=== PATIENT | male | born 1975 | race Caucasian/White ===

== ENCOUNTER 2023-10-03 17:04 | Observation (INO) ==
--- OUTSIDE RECORDS SUMMARY | 2023-10-03 17:08 | External Medical Summary | Summary of Care ---
Author Name Unknown Organization [facility] Address [address] [facility] [address] Phone [phone] Care Team Providers Care Lead Application Architect Name Role Phone Ariana Girard MD Primary Care Provid er Reason for Visit * Reason Onset Date Comments Advice 08/30/2023 Encounter Details Date Type Department Care Team (Late st Contact Info) Description 08/30/2023 Telephone [facility] [address] [place] [address] Ariana Girard MD [address] [place] [address] Advice Allergies Active Allergy Reactions Criticality Noted Date Comments Bee Stings 02/06/2009 Pollen 03/17/2022 Omeprazole Abdominal pain 09/22/2015 documented as of this encounter (statuses as of 09/03/2023) Medications Medication Sig Dispensed Refills Start Date End Date Status BENADRYL ALLERGY 25 MG PO TABSIndications:Tox ic effect of venom(989.5) 2 TABLETS AT ONSET OF BEE STING ITCHING, HIVES AND EVERY 4 TO 6 HOURS NEEDED 30 Tab 5 02/23/2010 Active fluticasone (FLONASE) 50 MCG/ACT nasal spray Administer 2 Sprays into nostril daily. 1 Bottle 3 02/02/2018 Active EpiPen 2-Andrew 0.3 MG/0.3ML Injection Solution Auto-injectorIndica tions:Allergy to bee sting For a severe reaction: Place orange end against the outer thigh, press firmly, hold in place for 10 seconds and go to the Emergency room. 1 Each 2 03/16/2021 Active Cetirizine HCl 10 MG Oral Tablet (ZyrTEC) Take 1 Tablet by mouth in the morning. 0 Active Atorvastatin Calcium 20 MG Oral Tablet (Lipitor)Indication s:Dyslipidemia, goal to be determined Take 1 Tablet by mouth every night at bedtime. 90 Tablet 3 04/08/2023 Active Rosuvastatin Calcium 5 MG Oral Tablet (Crestor)Indication s:Dyslipidemia, goal to be determined Take 1 Tablet by mouth every night at bedtime. 90 Tablet 3 06/10/2023 Active documented as of this encounter (statuses as of 09/03/2023) Active Problems Problem Noted Date Diagnosed Date Dyslipidemia, goal to be determined 06/10/2023 GEORGE (obstructive sleep apnea) 03/25/2023 Trigger middle finger of right hand 02/19/2022 Major depressive disorder, recurrent episode, mo derate 03/21/2021 ALBARO (generalized anxiety disorder) 03/21/2021 Mild intermittent asthma without complication Achilles tendinitis 03/12/2021 Plantar fasciitis, right 03/12/2021 Difficult intubation 02/26/2016 Overview: Fair mask airway, SALES SUPPORT SPECIALIST was unable to visualize vocal cords with DL, patient was able to be intubate by GlideScope with #3 Probe cover. Smaller mouth opening, making maneuvering of the ETT with GlideScope intubation mildly difficult. Migraine without aura and wi thout status migrainosus, not intractable 01/18/2003 documented as of this encounter (statuses as of 09/03/2023) Resolved Problems Problem Noted Date Diagnosed Date Resolved Date Seasonal allergic rhinitis due to pollen 03/16/2021 05/01/2021 Allergy to bee sting 03/16/2021 021 Achilles tendonitis, bilateral 03/16/2021 05/01/2021 Umbilical hernia without obs truction and without gangrene 11/05/2015 02/02/2018 Unilateral inguinal hernia w ithout obstruction or gangrene 10/05/2015 02/02/2018 Acute bronchitis, complicated 06/08/2012 04/27/2013 Conjunctivitis 10/08/2011 06/11/2014 Acute tonsillitis 08/10/2011 04/27/2013 Sprain of ankle 07/04/2010 04/27/2013 Overweight (BMI 25.0-29.9) 01/05/2010 0 02/02/2018 Overview: Per Obesity Taxonomy Gastroesophageal reflux dise ase without esophagitis 04/23/2009 02/02/2018 Overview: mild stomach irritation and esophageal inflammation ADVANCE DIRECTIVE INFORMATION 02/15/2007 05/01/2021 Overview: Yes, Patient instructed to provide copy of advance directive for provider to review and to be scanned into Electronic Medical Record Toxic effect of venom 10/19/20052020 Overview: ICD-10 update of inactive term CHR ALLRG CONJUNCTIV NEC 10/19/2005 Other allergic rhinitis 01/18/200304/10 Overview: ICD-10 update of inactive term Major depression, single episode 02/01/2017 OBESITY, UNSPECIFIED 010 Overview: Per Obesity Taxonomy Tobacco use disorder 010 Overview: Quit 2001 documented as of this encounter (statuses as of 09/03/2023) Immunizations Name Administration Dates Next Due COVID-19 mRNA, LNP-s, No Pre serve, 2-Dose Series (Moderna) 11/11/2020,10/17/2020 COVID-19, LNP-s, No Preserve , Antwon-sucrose, Ages 12+ (Pfizer) 07/10/2022 COVID-19, mRNA, LNP-s, PF, B ooster, 100mcg/0.5mg (Moderna) 08/26/2021 DTP Vaccine 02/21/2015 PPD 12/20/2018 SEASONAL INFLUENZA, PF, 6 M & Above, IM , (FLULAVAL or FLUZONE) 07/10/2022,06/21/2020,08/18/2017 Seasonal Influenza Virus Vac cine, Unspecified Formulation 07/15/2021,06/21/2020,07/10/2019,2016,06/24/2016,06/11/2014,07/06/2013 Seasonal Influenza, Quadriva lent, No Preserve, IM 06/24/2016,07/25/2015 Seasonal Influenza, Split, I IV3, With Preserve, Inj 06/11/2014,07/06/2013 TDAP (age 11 and older)(Adacel) 02/22/2015,10/08 documented as of this encounter Social History Tobacco Use Types Packs/Day Years Used Date Smoking Tobacco: Former Cigarettes Q uit: 07/15/2005 Smokeless Tobacco: Former Quit: 03/30/2009 Comments:1/2 can per day/kierra t ciagarettes 2000 Alcohol Use Standard Drinks/Week Comments Yes 4 (1 standard drink = 0.6 oz pur e alcohol) 4 beers per week PHQ-2 Answer Date Recorded PHQ-2 Score 0 02/05/2019 Hunger Vital Sign Answer Date Recorded Within the past 12 months, y ou worried that your food would run out before you got the money to buy more. Never true 03/14/20 23 Within the past 12 months, t he food you bought just didn't last and you didn't have money to get more. Never true 03/14/2023 Sex and Gender Information Value Date Recorded Sex Assigned at Male 02/05/2019 7:40 AM EDT Gender Identity Male 02/05/2019 7:40 AM EDT Sexual Orientation Straight 02/05/2019 7: 40 AM EDT Job Start Date Occupation Industry Not on file Not on file Not on file documented as of this encounter Miscellaneous Notes * Telephone Encounter - Ariana Girard MD - 09/03/2023 12:31 PM EST Seen by Telemed * Telephone Encounter - Tracey Sharp OSA - 08/30/2023 3:23 PM EST Patient's calling back to check on this. Wants paxlovid or advice for something else. Wants topick up today. Send to [facility] pharmacy. * Telephone Encounter - Indiana López LPN - 08/30/2023 1:10 PM EST is calling. They both tested positive for covid. Asking if he qualifies for paxlovid.? Cough is so bad feels like your eyeballs are popping out her doctor gave her something for the cough at least. If not paxlovid, is there something else? Patient calling with positive Covid result and requesting Paxlovid. What symptoms are you experiencing such as fever, sore throat, shortness of breath, cough, wheezing, nasal drainage, congestion? Cough, fever, head congestion, No shortness of breath. Did you have 2 vaccines yes Boosters 2 Date of first symptoms: Tuesday night Date of last fever: Today Have you had close exposure to someone who tested positive for COVID-19? Date of first exposure: Unknown Confirm pharmacy. * Telephone Encounter - Angelina Cabrera OSA - 08/30/2023 1:07 PM EST Reason for patient's call: questions for nurse about covid medication Caller was transferred to [facility] at the nurse line. documented in this encounter Plan of Treatment Upcoming Encounters Date Type Department Care Team (Late st Contact Info) Description 02/24/2024 10:00 AM EDT Office Visit Allergy/Immunology [facility] [place] [address] [place] [address] Ho Hein MD [address] [place] [address] 03/26/2024 9:00 AM EDT Office Visit [address] [place] [address] Ariana Girard MD [address] [place] [address] Health Maintenance Due Date Last Done Comments Hepatitis B (1 of 3 - 3-dose series) 1977 Pneumococcal Vaccine: Pediatrics (0 to 5 Years) and At-Risk Patients (6 to 64 Years) (1 - PCV) 1983 Depression Screening 02/06/2020 02/05/2019 Colonoscopy 2022 Fecal Occult Blood Test 2022 Sigmoidoscopy 2022 *SPIROMETRY ONCE FOR ASTHMA-ADULT 09/02/2022 COVID-19 Vaccine ( - 2022- season) 2023 07/10/2022, 08/26/2021, 11/11/2020, Additional history exists DTaP,Tdap,and Td Vaccines (5 - Td or Tdap) 02/22/2025 02/22/2015, 02/21/2015, 10/08/2011, Additional history exists Cologuard 03/31/2025 03/31/2022, 03/10, 03/25/2022 Colorectal Cancer Screening 03/31/2025 Diabetes Screening 08/04/2025 08/04/2022, 0 10/29/2015, 04/27/2013, Additional history exists Lipid Panel 03/25/2028 03/25/2023, 07/11, 12/04/2016, Additional history exists Influenza Vaccine (FLU shot) Completed , 07/10/2022, 07/15/2021, Additional history exists GARDASIL-HPV IMMUNIZATION SERIES Aged Out No longer eligible based on patient's age to complete this topic MENINGOCOCCAL (MENACTRA/MENVEO) Aged Out No longer eligible based on patient's age to complete this topic documented as of this encounter Medical Devices Implanted Type Area Forensic Ballistics Expert Device Identifier Shelf Expiration Date Model / Serial / Lot Mesh 3dmax 3.1x5.3in Lft Med - [id number] Implanted:Qty: 1 on 02/26/2016 by Bryan Aguilar, DO at OR [facility] Left: Groin CR BARD : ALAN 10/06/2020 [id number] / / [id number] documented as of this encounter Care Teams Lead Application Architect Relationship Specialty Start Date End Date Ariana Girard MD [address] [place] [id number] PCP - General Family Medicine 01/27/22 documented as of this encounter
--- OUTSIDE RECORDS SUMMARY | 2023-10-03 17:08 | External Medical Summary | Summary of Care ---
Author Name Unknown Organization [facility] Address [address] [facility] [place] [address] Phone [phone] Care Team Providers Care Fish And Wildlife Biologist Name Role Phone Ariana Girard MD Primary Care Provid er Reason for Visit * Reason Onset Date Comments Films 04/25/2023 Encounter Details Date Type Department Care Team Description 04/25/2023 Telephone Radiology Film [facility] [address] [facility] [place] [address] Rosa Ugarte DPM [address] [facility] [place] [id number] Films Allergies Active Allergy Reactions Severity Noted Date Comments Bee Stings 02/06/2009 Pollen 03/17/2022 Omeprazole Abdominal pain 09/22/2015 documented as of this encounter (statuses as of 04/25/2023) Medications Medication Sig Dispensed Refills Start Date [...] at bedtime. 90 Tablet 3 04/08/2023 Active documented as of this encounter (statuses as of 04/25/2023) Active Problems Problem Noted Date GEORGE (obstructive sleep apnea) 03/25/2023 Trigger middle finger of right hand 02/07 Major depressive disorder, recurrent epi sode, moderate 03/21/2021 ALBARO (generalized anxiety disorder) 03/21 Mild intermittent asthma without complic ation 03/16/2021 Achilles tendinitis 03/12/2021 Plantar fasciitis, right 03/12/2021 Difficult intubation 02/26/2016 Overview: Fair mask airway, GENERAL OFFICE CLERK was unable to visualize vocal cords with DL, patient was able to be intubate by GlideScope with #3 Probe cover. Smaller mouth opening, making maneuvering of the ETT with GlideScope intubation mildly difficult. Migraine without aura and without status migrainosus, not intractable 01/18/2003 documented as of this encounter (statuses as of 04/25/2023) Resolved Problems Problem Noted Date Resolved Date Seasonal allergic rhinitis due to pollen 021 05/01/2021 Allergy to bee sting 03/16/2021 05/01/2021 Achilles tendonitis, bilateral 03/16/2021 0 05/01/2021 Umbilical hernia without obstruction and without gangrene 11/05/2015 02/02/2018 Unilateral inguinal hernia without obstruction o r gangrene 10/05/2015 02/02/2018 Acute bronchitis, complicated 06/08/2012 Conjunctivitis 10/08/2011 06/11/2014 Acute tonsillitis 08/10/2011 04/27/2013 Sprain of ankle 07/04/2010 04/27/2013 Overweight (BMI 25.0-29.9) 01/05/201002/02 Overview: Per Obesity Taxonomy Gastroesophageal reflux disease without esophagi tis 04/23/2009 02/02/2018 Overview: mild stomach irritation and esophageal inflammation ADVANCE DIRECTIVE INFORMATION 02/15/2007 Overview: Yes, Patient instructed to provide copy of advance directive for provider to review and to be scanned into Electronic Medical Record Toxic effect of venom 10/19/2005 03/16/2021 Overview: ICD-10 update of inactive term CHR ALLRG CONJUNCTIV NEC 10/19/2005 021 Other allergic rhinitis 01/18/2003 05/01/20 21 Overview: ICD-10 update of inactive term Major depression, single episode 02/01/2017 OBESITY, UNSPECIFIED 01/05/2010 Overview: Per Obesity Taxonomy Tobacco use disorder 02/23/2010 Overview: Quit 2001 documented as of this encounter (statuses as of 04/25/2023) Immunizations Name Administration Dates Next Due COVID-19 mRNA, LNP-s, No Pre serve, 2-Dose Series (Moderna) 11/11/2020,10/17/2020 COVID-19, LNP-s, No Preserve , Antwon-sucrose, Ages 12+ (Pfizer) 07/10/2022 Covid-19 Mrna, Lnp-s, No Pre serve, Booster (Moderna) 08/26/2021 DTP Vaccine 02/21/2015 PPD 12/20/2018 Seasonal Influenza Virus Vac cine, Unspecified Formulation 07/15/2021,06/21/2020,07/10/2019,2016,06/24/2016,06/11/2014,07/06/2013 Seasonal Influenza, Quadriva lent, No Preserve, 6 Mons & Above, IM 07/10/2022,06/21/2020,08/18/2017 Seasonal Influenza, Quadriva lent, No Preserve, IM [...] pur e alcohol) 4 beers per week Food Insecurity Answer Date Recorded Within the past 12 months, y ou worried that your food would run out before you got money to buy more. Never true 03/14/2023 Within the past 12 months, t he food you bought just didn't last and you didn't have money to get more. Never true 03/14/2023 Sex Assigned at Date Recorded Male 02/05/2019 7:40 AM E DT Job Start Date Occupation Industry Not on file Not on file Not on file documented as of this encounter Miscellaneous Notes * Telephone Encounter - GEORGE Clancy - 04/25/2023 3:54 PM EDT Received fax requesting 03/31/20 Xray, 07/28/22 Xray & 09/17/22 MRI images be sent on disc. [place] Authorization on file to release. Cd created and sent to: [facility], [address] [place] [address], [id number] Sent First Class Mail. documented in this encounter Plan of Treatment Upcoming Encounters Date Type Specialty Care Team Description 03/26/2024 Office Visit Family Medicine Ariana Girard MD [address] [place] [address] Health Maintenance Due Date Last Done Comments Hepatitis B (1 of 3 - 3-dose series) 1975 Pneumococcal Vaccine: Pediatrics (0 to 5 Years) and At-Risk Patients (6 to 64 Years) (1 - PCV) 1983 Depression Screening, Annual for Pts 12 and Over 02/06/2020 02/05/2019 Colonoscopy 2022 Fecal Occult Blood Test 2022 Sigmoidoscopy 2022 *SPIROMETRY ONCE FOR ASTHMA-ADULT 09/02/2022 COVID-19 Vaccine (5 - Moderna series) 09/04/2022 07/10/2022, 08/26/2021, 11/11/2020, Additional history exists Influenza Vaccine (FLU shot) (#1) 2023 07/10/2022, 07/15/2021, 06/21/2020, Additional history exists DTaP,Tdap,and Td Vaccines (5 - Td or Tdap) 02/22/2025 02/22/2015, 02/21/2015, 10/08/2011, Additional history exists Cologuard 03/31/2025 03/31/2022, 03/10, 03/25/2022 Colorectal Cancer Screening 03/31/2025 Diabetes Screening 08/04/2025 08/04/2022, 0 10/29/2015, 04/27/2013, Additional history exists Lipid Panel 03/25/2028 03/25/2023, 07/11, 12/04/2016, Additional history exists Hepatitis C Screening Completed 08/04/2022 , 08/04/2022, 08/04/2022 GARDASIL-HPV IMMUNIZATION SERIES Aged Out No longer eligible based on patient's age to complete this topic MENINGOCOCCAL (MENACTRA/MENVEO) Aged Out No longer eligible based on patient's age to complete this topic documented as of this encounter Medical Devices Implanted Type Area Manager Environmental Device Identifier Shelf Expiration Date Model / Serial / Lot Mesh 3dmax 3.1x5.3in t Med - [id number] Implanted:Qty: 1 on 02/26/2016 by Bryan Aguilar DO at OR [facility] Left: Groin CR BARD : DAVOL 10/06/2020 [id number] / / [id number] documented as of this encounter Care Teams Fish And Wildlife Biologist Relationship Specialty Start Date End Date Ariana Girard MD [address] [place] [address] PCP - General Family Medicine 01/27/22 documented as of this encounter
--- OUTSIDE RECORDS SUMMARY | 2023-10-03 17:08 | External Medical Summary | Summary of Care ---
Author Name Unknown Organization [facility] Address [address] [facility] [place] [address] Phone [phone] Care Team Providers Care [employer]ator [employer] Name Role Phone Ariana Girard MD Primary Care Provid er Encounter Details Date Type Department Care Team (Late st Contact Info) Description 08/30/2023 5:40 PM EST Telemedicine [facility] [address] [place] [id number] Cari Cantrell, [address] [place] [id number] COVID-19 virus infection* Allergies Active Allergy Reactions Criticality Noted Date Comments Bee Stings 02/06/2009 Pollen 03/17/2022 Omeprazole Abdominal pain 09/22/2015 documented as of this encounter (statuses as of 08/31/2023) Medications Medication Sig Dispensed Refills Start Date [...] as of this encounter (statuses as of 08/31/2023) Active Problems Problem Noted Date Diagnosed Date Dyslipidemia, goal to be determined 06/10/2023 GEORGE (obstructive sleep apnea) 03/25/2023 Trigger middle finger of right hand 02/19/2022 Major depressive disorder, recurrent episode, mo derate 03/21/2021 ALBARO (generalized anxiety disorder) 03/21/2021 Mild intermittent asthma without complication Achilles tendinitis 03/12/2021 Plantar fasciitis, right 03/12/2021 Difficult intubation 02/26/2016 Overview: 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 Smaller mouth opening, making maneuvering of the ETT with GlideScope intubation mildly difficult. Migraine without aura and wi thout status migrainosus, not intractable 01/18/2003 documented as of this encounter (statuses as of 08/31/2023) Resolved Problems Problem Noted Date Diagnosed Date [...] as of this encounter (statuses as of 08/31/2023) Immunizations Name Administration Dates Next Due COVID-19 [...] on file documented as of this encounter Progress Notes * Cari Cantrell DO - 08/30/2023 5:50 PM EST Patient location: HOME. I was in a hospital or clinic location. After connecting through televideo,patient was verified with two unique identifiers. 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 Methods to assure confidentiality were taken. Patient acknowledged consent and understanding of pr ivacy and security of the Telemedicine visit. The patient agreed to participate. [address] [place] [id number] Dept. Location: [phone] CHIEF COMPLAINT: Migue Welch is a 48 year old male No chief complaint on file. HPI: There are no exam notes on file for this visit. Pt new to me Seen as VOD The patient reports that he has covid On a home test He started with symptoms on Tuesday evening Cough and congestion and fatigue Now with chills and fever - 100.4 He hasn't taken tylenol or motrin Non smoker No wheezng + nausea No abd pain No diarrhea No vomiting + body aches Decreased appetite All other ro sneg Wt Readings from Last 3 Encounters: 03/25/23 92.1 kg (203 lb) 03/17/22 97.1 kg (214 lb) 03/16/21 83.6 kg (184 lb 4 oz) Hemoglobin AIC Results: No components found for: "[id number]" Lab Results Component Value Date/Time LDL CHOLESTEROL (CALCULATED) - [facility] 201 (H) 03/25/2023 08:22 AM LDL CHOLESTEROL (CALCULATED) - [facility] 159 (H) 08/04/2017 08:03 AM LDL CHOLESTEROL (CALCULATED) - [facility] 93 12/04/2016 08:32 AM LDL CHOLESTEROL (CALCULATED) - [facility] 100 04/22/2015 01:22 PM AST Results: Lab Results Component Value Date/Time AST - [facility] 41 12/04/2016 08:32 AM AST - [facility] 28 04/22/2015 01:22 PM AST - [facility] 34 05/18/2014 10:25 AM ALT Results: Lab Results Component Value Date/Time ALT - [facility] 36 12/04/2016 08:32 AM ALT - [facility] 39 04/22/2015 01:22 PM ALT - [facility] 42 05/18/2014 10:25 AM Social History Tobacco Use Smoking Status Former Types: Cigarettes Quit date: 07/15/2005 Years since quittin.1 Smokeless Tobacco Former Quit date: 03/30/2009 Tobacco Comments 1/2 can per day/quit matt 2000 BP Readings from Last 3 Encounters: 03/25/23 118/80 03/17/22 132/76 04/26/21 130/80 No results found for: "MICROALB" Visit date not found Immunization History Administered Date(s) Administered COVID-19 mRNA, LNP-s, No Preserve, 2-Dose Series (Moderna) 10/17/2020, 11/11/2020 COVID-19, LNP-s, No Preserve, Antwon-sucrose, Ages 12+ (Pfizer) 07/10/2022 COVID-19, mRNA, LNP-s, PF, Booster, 100mcg/0.5mg (Moderna) 08/26/2021 DT - Diptheria/Tetanus (PEDS) 01/18/2003 DTP Vaccine 02/21/2015 PPD 12/20/2018 SEASONAL INFLUENZA, PF, 6 M & Above, IM , (FLULAVAL or FLUZONE) 08/18/2017, 06/21/2020, 07/10/2022 Seasonal Influenza Virus Vaccine, Unspecified Formulation 07/06/2013, 06/11/2014, 06/24/2016, 08/18/2017, 07/10/2019, 06/21/2020, 07/15/2021 Seasonal Influenza, Quadrivalent, No Preserve, IM 07/25/2015, 06/24/2016 Seasonal Influenza, Split, IIV3, With Preserve, Inj 07/06/2013, 06/11/2014 TDAP (age 11 and older)(Adacel) 10/08/2011, 02/22/2015 Results for orders placed or performed in visit on 03/25/23 LIPID PANEL WITH DIRECT LDL IF TG IS HIGH Result Value Ref Range Triglycerides 82 <=174 mg/dL Cholesterol 261 (H) <200 mg/dL HDL Cholesterol 44 >39 mg/dL Non-HDL Cholesterol 217 (H) <=159 mg/dL LDL Cholesterol 201 (H) <=129 mg/dL PMH: Past Medical History: Diagnosis Date Allergic rhinitis due to other allergen Bee sting allergy Esophageal reflux 04/23/2009 mild stomach irritation and esophageal inflammation ALBARO (generalized anxiety disorder) 03/21/2021 Major depression, single episode Migraine without aura Sleep apnea, obstructive PSH: Past Surgical History: Procedure Laterality Date DENTAL SURGERY PROCEDURE NEC 10/12 tooth extraction EGD, FLEXIBLE, W/BIOPSY 04/23/09 mild stomach irritation and esophageal inflammation INFORMATION Left 06-13-2015 Other LAPAROSCOPY; REPAIR INITIAL INGUINAL HERNIA Left 02/26/2016 LAPAROSCOPIC REPAIR INGUINAL HERNIA INITIAL performed by Norma Colorado MD at OR [facility] NUC MED-HEPATOBILIARY SCAN 04/09/2009 normal REMOVAL OF TONSILS, AGE 12+ Bilateral 02/26/2016 TONSILLECTOMY PRIMARY OR SECONDARY AGE 12 OR OVER performed by Bryan Aguilar DO at OR [facility] UMBIL HERNIA REPAIR (REDUCIBLE) AGE 5+YR N/A 02/26/2016 REPAIR UMBILICAL HERNIA AGE 5 AND OVER performed by Norma Colorado MD at OR [facility] FAMILY HISTORY: Family History Problem Relation Age of Onset Diabetes Mother Allergies Mother seasonal rhinitis Obesity Mother Arthritis Mother Atrial fibrillation Mother Allergies Father Hypertension Father Obesity Father Other (congenital heart disease) Sister passed in 20s heart lung transplant Diabetes Grandmother (Maternal) Mental Disorder Grandmother (Maternal) Depression Cancer Grandmother (Maternal) Breast Diabetes Grandfather (Maternal) Cancer Grandfather (Maternal) Pancreatic Stroke Grandmother (Paternal) at age 78 Diabetes Grandmother (Paternal) Cancer Grandfather (Paternal) Lung (Smoker) Family Status Relation Status Mo Alive Fa Alive Sis MGMA MGFA PGMA PGFA Social History Socioeconomic History Marital status: Spouse name: Cyndie Number of children: 0 Occupational History 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 Employer: [email or web address] Occupation: [phone] Employer: [place] [address] 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 Tobacco Use Smoking status: Former Types: Cigarettes Quit date: 07/15/2005 Years since quittin.1 Smokeless tobacco: Former Quit date: 03/30/2009 Tobacco comments: 1/2 can per day/quit matt 2000 Vaping Use Vaping Use: Never used Substance and Sexual Activity Alcohol use: Yes Alcohol/week: 4.0 standard drinks of alcohol Types: 4 12 oz of beer per week Comment: 4 beers per week Drug use: No Sexual activity: Yes Partners: Female control/protection: Pill Social History Narrative [employer] [employer] [place] INFORMATION ENIVIRONMENTAL HISTORY: House: Bilevel Type of Heating System: Gas and Forced air Air Conditioning: Yes Central Basement: Unfinished, Dampness and Dehumidifier Home have cockroaches: No Irritants in the home: Scented Candles Patient's bedroom: FLOOR: second TYPE OF LEO: Carpeting Beds: AMOUNT : 1 TYPE OF BEDS: Mattress and Box spring Pillows: AMOUNT: 3 TYPE OF PILLOWS: Synthetic (hypoallergenic, polyester) Bedroom contains: Stuffed animals and Bookshelves/Books Pets: 1 cat(s) [place] farm: No cmm programmer; Volunteer [employer] outside activities all the time. Entered By: Han Rivera MD 10/19/2005 Social Determinants of Health Food Insecurity: No Food Insecurity (03/14/2023) Hunger Vital Sign Worried About Running Out of Food in the Last Year: Never true Ran Out of Food in the Last Year: Never true MEDICATIONS: Current Outpatient Medications Medication Sig Dispense Refill BENADRYL ALLERGY 25 MG PO TABS 2 TABLETS AT ONSET OF BEE STING ITCHING, HIVES AND EVERY 4 TO 6 HOURS NEEDED 30 Tab 5 fluticasone (FLONASE) 50 MCG/ACT nasal spray Administer 2 Sprays into nostril daily. 1 Bottle 3 EpiPen 2-Andrew 0.3 MG/0.3ML Injection Solution Auto-injector For a severe reaction: Place orange end against the outer thigh, press firmly, hold in place for 10 seconds and go to the Emergency room. 1 Each 2 Cetirizine HCl 10 MG Oral Tablet (ZyrTEC) Take 1 Tablet by mouth in the morning. Atorvastatin Calcium 20 MG Oral Tablet (Lipitor) Take 1 Tablet by mouth every night at bedtime. 90 Tablet 3 Rosuvastatin Calcium 5 MG Oral Tablet (Crestor) Take 1 Tablet by mouth every night at bedtime. 90 Tablet 3 No current facility-administered medications for this visit. ALLERGIES: Review of patient's allergies indicates: Allergen Reactions Bee Stings Environmental [Pollen] Omeprazole Abdominal pain PHYSICAL EXAM: There were no vitals taken for this visit. Physical Exam: General: Awake, alert, oriented x3, NAD ASSESSMENT: pt new to me with VOD Has a + home covid test OTC medication Watch for worsening of symptoms or SOB Call pcp for issues with same Advised of risk of blood clots with covid and to be aware of same PLAN: COVID-19 virus infection (Primary) I spent a total of 20-29 minutes (exact time 20 mins) on the date of service in preparation, delivery, and documentation of the care provided to Migue Welch excluding any time spent in the performance of separately billed services. Cari Pascual DO 08/30/2023 5:50 PM documented in this encounter Plan of Treatment Upcoming Encounters Date Type Department Care Team (Late st Contact Info) Description 02/24/2024 10:00 AM EDT Office Visit Allergy/Immunology [facility] [place] [address] [place], [place] [address] Ho Hein MD [address] [facility] [place], [place] [address] 03/26/2024 9:00 AM EDT Office Visit [facility] [address] [place] [address] Ariana Girard MD [address] [place] [address] Health Maintenance Due Date Last [...] this encounter Medical Devices Implanted Type Area Recreation Professor Device Identifier Shelf Expiration Date Model / Serial / Lot Mesh 3dmax 3.1x5.3in Lft Med - [id number] Implanted:Qty: 1 on 02/26/2016 by Bryan Aguilar DO at OR [facility] Left: Groin CR BARD : ALAN 10/06/2020 [id number] / / [id number] documented as of this encounter Visit Diagnoses Diagnosis COVID-19 virus infection- Primary documented in this encounter Care Teams [employer]ator [employer] Relationship Specialty Start Date End Date Ariana Girard MD [address] [place] [address] PCP - General Family Medicine 01/27/22 documented as of this encounter
[2023-10-03 17:35] LABS: Basophils # (auto) 0.08 K/uL (0.00-0.20); Basophils % (auto) 0.8 %; Eosinophils # (auto) 0.12 K/uL (0.00-0.50); Eosinophils % (auto) 1.2 %; Hematocrit (blood only) 44.3 % (42.0-52.0); Hemoglobin 15.9 g/dl (14.0-18.0); Immature Granulocytes # (auto) 0.07 K/uL (0.01-0.20); Immature Granulocytes % (auto) 0.7 %; Lymphocytes # (auto) 1.75 K/uL (1.20-3.40); Lymphocytes % (auto) 17.2 %; Mean Corpuscular Hemoglobin 28.9 pg (25.0-34.0); Mean Corpuscular Hgb Conc 35.9 g/dL (32.0-36.0); Mean Corpuscular Volume 80.5 fL (80.0-100.0); Monocytes # (auto) 0.73 K/uL (0.11-0.59); Monocytes % (auto) 7.2 %; Neutrophils # (auto) 7.42 K/uL (1.40-6.50); Neutrophils % (auto) 72.9 %; Platelet Count 281 K/uL (130-400); RDW Coefficient of Variation 12.6 % (11.5-14.5); RDW Standard Deviation 36.5 fL (36.4-46.3); White Blood Count 10.17 K/ul (4.8-10.8)
--- NOTE | 2023-10-03 17:35 | Emergency Department Note ---
Impression & Plan Atypical chest pain ED Provider Note NAME: TIMO RODRIGUEZ AGE: 48 SEX: M : 1975 ARRIVES VIA: Ambulance INFORMANT: Patient, ED PROVIDER(S): Louis Barr MD CHIEF COMPLAINT: Chest pain HPI: This is a 48-year-old male with history of hypertension presenting for left shoulder pain. Patient states that last night around 1 morning he began having pain in his left shoulder and arm. He notes no significant numbness but he did note nausea. This morning the pain has not improved and is continued. He again notes nausea without vomiting. He notes pain will radiate between his shoulder as well. No anterior chest pain. He feels he has indigestion otherwise. He presented to a local EMS company and had elevated blood pressure in the 210's. Patient mentioned that he drinks 2 alcoholic drinks per day for anxiety. Given nitro and aspirin and route. ROS: See above HPI for pertinent positives & negatives. A total of 10 systems reviewed and were otherwise negative. PAST MEDICAL HISTORY: See Below PAST SURGICAL HISTORY: See Below FAMILY HISTORY: See Below SOCIAL HISTORY: See Below HOME MEDICATIONS: See Below ALLERGIES: See Below VITALS: See Below PHYSICAL EXAMINATION: General: resting comfortably in no acute distress Head: Normocephalic and atraumatic Eyes: Normal inspection, extraocular muscles intact Ear, nose, throat: Normal external exam Neck: Normal range of motion Respiratory: lungs clear to auscultation bilaterally Cardiovascular: Regular rate/rhythm, no murmur GI: soft, nontender, no guarding or rebound Extremities: nontender, moves all extremities Neuro: The patient awake and alert, appropriately conversive, no focal deficits, symmetric faces Skin: Warm, dry, and intact MEDICAL DECISION MAKING: This is a 48-year-old male with history of hypertension presenting for left shoulder pain. -ECG independently interpreted by me with sinus tach, rate of 102, normal axis, normal CO, slight intraventricular conduction delay, normal QTc, no ST segment elevations consistent with STEMI criteria, slight aVR elevation, ST depression in leads II, III, aVF with T wave inversions in 3 and aVF -Chest Xray independently interpreted by me showing no pneumothorax, focal opacity, or pleural effusions. -Lab was reassuring without leukocytosis, no anemia, slightly low potassium 3.2, no troponin elevation, transaminitis -Will admit for ACS rule out as patient EKG is concerning for ischemia despite negative troponin -Chest pain is not relieved at this time, patient received aspirin, will discuss with hospitalist -Admitted to hospitalist service at this time, [facility] Differential diagnosis: ACS, PE, musculoskeletal abnormality ER treatment provided: See below Diagnostics interpreted by me: ECG: As above Cardiac Monitoring: An order was placed for continuous cardiac monitoring. The monitor shows a rate of 97 with sinus rhythm. Laboratory studies: As stated above and show below. Imaging studies: See below. Past Med/Surg History Medical History HLD (hyperlipidemia) No pertinent family history Surgical History No pertinent past surgical history Social History Smoking Status: Former smoker Preferred Language: Botswanan Feels Safe at Home: Yes Allergies Allergies Allergy/AdvReac Type Severity Reaction Status Date / Time omeprazole Allergy Unknown diarrhea Verified 05/14/23 15:51 Home Meds Home Medications Medication Instructions Recorded Confirmed cetirizine 10 mg tablet 10 mg PO DAILY 10/03/23 10/03/23 rosuvastatin 5 mg tablet 5 mg PO DAILY 10/03/23 10/03/23 Results & Data (ED) Vital Signs Vital Signs - 24 hr 10/03/23 17:09 10/03/23 17:09 10/03/23 17:09 Temperature 36.9 C Temperature Source Oral Pulse Rate 100 H Pulse Rate from SpO2 Sensor Pulse Rhythm Regular Pulse Strength Normal Respiratory Rate 17 19 Respiratory Effort / Characteristics Non-Labored Spontaneous Non-Labored Spontaneous Respiratory Depth Normal Normal Respiratory Pattern Regular Regular Blood Pressure 153/90 H Blood Pressure Mean 111 Blood Pressure Position Semi-fowlers Pulse Oximetry 100 99 99 Oxygen Delivery Method Room Air Room Air Room Air Sepsis Recent Fever Within 48 Hours No Sepsis New/Unexplained Change in Mental Status No Sepsis Action Taken by Nursing No Action Required 10/03/23 17:09 10/03/23 17:12 10/03/23 17:20 Temperature Temperature Source Pulse Rate 108 H 102 H Pulse Rate from SpO2 Sensor 110 H Pulse Rhythm Pulse Strength Respiratory Rate 21 Respiratory Effort / Characteristics Respiratory Depth Respiratory Pattern Blood Pressure Blood Pressure Mean Blood Pressure Position Pulse Oximetry 99 100 Oxygen Delivery Method Room Air Sepsis Recent Fever Within 48 Hours Sepsis New/Unexplained Change in Mental Status Sepsis Action Taken by Nursing 10/03/23 17:30 10/03/23 17:30 10/03/23 18:00 Temperature Temperature Source Pulse Rate 89 Pulse Rate from SpO2 Sensor 90 Pulse Rhythm Pulse Strength Respiratory Rate 15 Respiratory Effort / Characteristics Respiratory Depth Respiratory Pattern Blood Pressure 155/85 H 140/97 Blood Pressure Mean 102 131 Blood Pressure Position Pulse Oximetry 97 Oxygen Delivery Method Sepsis Recent Fever Within 48 Hours Sepsis New/Unexplained Change in Mental Status Sepsis Action Taken by Nursing 10/03/23 18:00 10/03/23 18:30 10/03/23 18:30 Temperature Temperature Source Pulse Rate 90 103 H Pulse Rate from SpO2 Sensor 90 101 H Pulse Rhythm Pulse Strength Respiratory Rate 15 18 Respiratory Effort / Characteristics Respiratory Depth Respiratory Pattern Blood Pressure 159/92 H Blood Pressure Mean 129 Blood Pressure Position Pulse Oximetry 98 99 Oxygen Delivery Method Sepsis Recent Fever Within 48 Hours Sepsis New/Unexplained Change in Mental Status Sepsis Action Taken by Nursing Laboratory Data 10/03/23 17:15 10/03/23 17:15 Lab Results 10/03/23 Range/Units 17:15 WBC 10.17 (4.8-10.8) K/ul RBC 5.50 (4.70-6.10) M/uL Hgb 15.9 (14.0-18.0) g/dl Hct 44.3 (42.0-52.0) % MCV 80.5 (80.0-100.0) fL MCH 28.9 (25.0-34.0) pg MCHC 35.9 (32.0-36.0) g/dL RDW Std Deviation 36.5 (36.4-46.3) fL RDW Coeff of Stephanie 12.6 (11.5-14.5) % Plt Count 281 (130-400) K/uL MPV 11.0 (9.4-12.4) fL Immature Gran % (Auto) 0.7 % Neut % (Auto) 72.9 % Lymph % (Auto) 17.2 % Cedar % (Auto) 7.2 % Eos % (Auto) 1.2 % Baso % (Auto) 0.8 % Neut # (Auto) 7.42 H (1.40-6.50) K/uL Lymph # (Auto) 1.75 (1.20-3.40) K/uL Cedar # (Auto) 0.73 H (0.11-0.59) K/uL Eos # (Auto) 0.12 (0.00-0.50) K/uL Baso # (Auto) 0.08 (0.00-0.20) K/uL Immature Gran # (Auto) 0.07 (0.01-0.20) K/uL Sodium 138 (136-145) mmol/L Potassium 3.2 L (3.5-5.1) mmol/L Chloride 101 (98-107) mmol/L Carbon Dioxide 27 (21-32) mmol/L Anion Gap 10 (3-11) BUN 11 (6-23) mg/dl Creatinine 0.95 (0.6-1.4) mg/dl Est Cr Clr Drug Dosing 105.8 ml/min Est GFR ( Amer) 110.8 ml/min Est GFR (Non-Af Amer) 95.6 ml/min BUN/Creatinine Ratio 11.6 (10-20) Glucose 117 H (70-99(Fasting)) mg/dl Calcium 9.8 (8.6-10.3) mg/dl Total Bilirubin 0.7 (0.2-1.0) mg/dl AST 18 (13-39) U/L ALT 31 (7-52) U/L Alkaline Phosphatase 18 L (34-104) U/L Troponin I High Sens < 2.3 (0-20) pg/ml Total Protein 7.5 (6.0-8.3) gm/dl Albumin 4.4 (3.4-5.0) gm/dl Globulin 3.1 (2.5-4.0) gm/dl Albumin/Globulin Ratio 1.4 (0.9-2) Lipase 59 (11-82) U/L Imaging Data Radiologist's Impression: Chest X-Ray 10/03/23 17:08 XR chest 1V portable CLINICAL HISTORY: Chest pain, nonspecific COMPARISON STUDY: Chest radiograph April 15, 2009. FINDINGS: Lung volumes are normal. Lungs are clear. There is no pneumothorax or pleural effusion. Cardiac size is normal. Mediastinal contours are normal. There is no evidence for pulmonary edema. IMPRESSION: No acute cardiopulmonary findings. ACT 112: Negative or not required by law. Electronically signed by: Shubham Arellano M.D. 10/03/2023 5:44 PM Discharge Plan Visit Data Chief Complaint: Chest Pain Stated Complaint: CHEST PAIN, ARM PAIN ED Provider: Louis Barr Discharge Problem: Atypical chest pain Discharge Instructions Interventions: ED Discharge Assessment Last Done: 10/03/23 20:32
--- NOTE | 2023-10-03 17:46 | XRay Report ---
XR chest 1V portable CLINICAL HISTORY: Chest pain, nonspecific COMPARISON STUDY: Chest radiograph April 15, 2009. FINDINGS: Lung volumes are normal. Lungs are clear. There is no pneumothorax or pleural effusion. Car diac size is normal. Mediastinal contours are normal. There is no evidence for pulmonary edema. IMPRESSION: No acute cardiopulmonary findings. ACT 112: Negative or not required by law. Electronically signed by: Shubham Arellano M.D. 10/03/2023 5:44 PM
[2023-10-03 17:53] LABS: Alanine Aminotransferase 31 U/L (7-52); Albumin Globulin Ratio 1.4 (0.9-2); Albumin Level 4.4 gm/dl (3.4-5.0); Alkaline Phosphatase 18 U/L (34-104); Anion Gap 10 (3-11); Aspartate Aminotransferase 18 U/L (13-39); BUN Creatinine Ratio 11.6 (10-20); Bilirubin,Total 0.7 mg/dl (0.2-1.0); Blood Urea Nitrogen 11 mg/dl (6-23); Calcium 9.8 mg/dl (8.6-10.3); Carbon Dioxide 27 mmol/L (21-32); Chloride 101 mmol/L (98-107); Creatinine Clr Calc Pharmacy 105.8 ml/min; Est GFR (African American) 110.8 ml/min; Est GFR (Non-African American) 95.6 ml/min; Globulin 3.1 gm/dl (2.5-4.0); Glucose 117 mg/dl (70-99(Fasting)); Lipase 59 U/L (11-82); Potassium 3.2 mmol/L (3.5-5.1); Sodium 138 mmol/L (136-145); Total Protein 7.5 gm/dl (6.0-8.3)
[2023-10-03 17:59] LABS: Troponin I High Sensitivity < 2.3 pg/ml (0-20)
[2023-10-03] MEDS ORDERED: NITROGLYCERIN SL 0.4 MG/TAB TAB SL PRN (20:32)
[2023-10-03] MEDS ORDERED: LABETALOL HCL IV 5 MG/ML 20ML IV PRN (20:32)
[2023-10-03] MEDS ORDERED: POLYETHYLENE (MIRALAX) 17 GM PACK PO PRN (20:32)
--- NOTE | 2023-10-03 20:43 | History & Physical Report ---
Date of Service October 03, 2023 Assessment & Plan (1) Chest pain: Plan: 48-year-old male with past medical history significant for dyslipidemia,, difficult intubation, mild persistent asthma, obstructive sleep apnea noncompliant with CPAP, plantar fasciitis, migraine, depression, general anxiety disorder, presents with chest pain. Chest pain Initial troponin negative Some EKG changes Will place on Nitropaste Serially cardiac enzymes and echo N.p.o. Cardiac consult in a.m. Obstructive sleep apnea Says could not tolerate CPAP States he will try to lose weight Hyperlipidemia On statin Will follow lipid profile DVT prophylaxis SCDs Disposition Med/tele Full code History of Present Illness Chief Complaint: Chest pain Primary Care Provider: Ariana Girard MD 48-year-old male with past medical history significant for dyslipidemia,, difficult intubation, mild persistent asthma, obstructive sleep apnea noncompliant with CPAP, plantar fasciitis, migraine, depression, general anxiety disorder, presents with chest pain. Patient states he woke up around 1:30 AM in the morning with left shoulder pain radiating to the scapular region 3/10 in severity aching type. And it was not getting better. He got anxious and his systolic blood pressure shot into 200s. No diaphoresis. No nausea. No headache. No dizziness. Currently pain is minimal. No cough. No fevers. No sore throat. No abdominal pain. Normal bowel and bladder movements. Patient says usually he runs runs. But he had COVID at the end of August since since then he is not running. But he is walking 3 miles a day. Last walked 3 miles and notes no symptoms of chest pain or shortness of breath while walking. But today when he had this pain while climbing steps the pain was little worse. Past medical history. As mentioned above Past surgical history. Dental surgery. EGD with biopsy. Laparoscopic inguinal hernia repair. Tonsillectomy. Umbilical hernia repair Social history. . Quit smoking 2004. Alcohol 4 beers per week. No drug use. Family history. Father has allergies. Hypertension. Obesity. Mother has allergies. Arthritis. Atrial fibrillation. Diabetes. Maternal grandfather had pancreatic cancer. Diabetes. Maternal grandmother had breast cancer. Diabetes. Depression. Paternal grandmother had diabetes. Paternal grandfather had lung cancer. Allergies Allergy/AdvReac Type Severity Reaction Status Date / Time omeprazole Allergy Unknown diarrhea Verified 05/14/23 15:51 Home Medications Medication Instructions Recorded Confirmed Type cetirizine 10 mg tablet 10 mg PO DAILY 10/03/23 10/03/23 History rosuvastatin 5 mg tablet 5 mg PO DAILY 10/03/23 10/03/23 History Past Med/Surg History Medical History HLD (hyperlipidemia) No pertinent family history Surgical History No pertinent past surgical history Social History Smoking Status: Former smoker Preferred Language: Armenian Feels Safe at Home: Yes Review of Systems Review of Systems: All systems reviewed & are unremarkable except as noted in HPI & below Physical Exam Physical Exam: General- Not in distress Head- atraumatic Eyes- PERRL. ENT- oropharynx clear Neck- supple, no JVD. Lungs- clear to auscultation no wheezing or crackles. Heart- regular rhythm; no murmur, no gallop. Abdomen- normal bowel sounds, soft, nontender, no distension. Extremities- no pretibial edema, no erythema seen. Neuro- alert, oriented x 3; PERRL, no facial palsy; no dysarthria; moves extremities Results & Data Results & Data Vital Signs (Past 12 Hours) Vital Signs Temp Pulse Resp BP Pulse Ox O2 Del Method 10/03/23 18:30 103 H 18 99 10/03/23 18:30 159/92 H 10/03/23 18:00 90 15 98 10/03/23 18:00 140/97 10/03/23 17:30 89 15 97 10/03/23 17:30 155/85 H 10/03/23 17:20 102 H 10/03/23 17:12 108 H 21 100 10/03/23 17:09 99 Room Air 10/03/23 17:09 19 99 Room Air 10/03/23 17:09 99 Room Air 10/03/23 17:09 36.9 C 100 H 17 153/90 H 100 Room Air Diagnostic Findings Laboratory Results WBC 10.17 K/ul (4.8-10.8) 10/03/23 17:15 RBC 5.50 M/uL (4.70-6.10) 10/03/23 17:15 Hgb 15.9 g/dl (14.0-18.0) 10/03/23 17:15 Hct 44.3 % (42.0-52.0) 10/03/23 17:15 MCV 80.5 fL (80.0-100.0) 10/03/23 17:15 MCH 28.9 pg (25.0-34.0) 10/03/23 17:15 MCHC 35.9 g/dL (32.0-36.0) 10/03/23 17:15 RDW Std Deviation 36.5 fL (36.4-46.3) 10/03/23 17:15 RDW Coeff of Stephanie 12.6 % (11.5-14.5) 10/03/23 17:15 Plt Count 281 K/uL (130-400) 10/03/23 17:15 MPV 11.0 fL (9.4-12.4) 10/03/23 17:15 Immature Gran % (Auto) 0.7 % 10/03/23 17:15 Neut % (Auto) 72.9 % 10/03/23 17:15 Lymph % (Auto) 17.2 % 10/03/23 17:15 [place] % (Auto) 7.2 % 10/03/23 17:15 Eos % (Auto) 1.2 % 10/03/23 17:15 Baso % (Auto) 0.8 % 10/03/23 17:15 Neut # (Auto) 7.42 K/uL (1.40-6.50) H 10/03/23 17:15 Lymph # (Auto) 1.75 K/uL (1.20-3.40) 10/03/23 17:15 [place] # (Auto) 0.73 K/uL (0.11-0.59) H 10/03/23 17:15 Eos # (Auto) 0.12 K/uL (0.00-0.50) 10/03/23 17:15 Baso # (Auto) 0.08 K/uL (0.00-0.20) 10/03/23 17:15 Immature Gran # (Auto) 0.07 K/uL (0.01-0.20) 10/03/23 17:15 Sodium 138 mmol/L (136-145) 10/03/23 17:15 Potassium 3.2 mmol/L (3.5-5.1) L 10/03/23 17:15 Chloride 101 mmol/L (98-107) 10/03/23 17:15 Carbon Dioxide 27 mmol/L (21-32) 10/03/23 17:15 Anion Gap 10 (3-11) 10/03/23 17:15 BUN 11 mg/dl (6-23) 10/03/23 17:15 Creatinine 0.95 mg/dl (0.6-1.4) 10/03/23 17:15 Est Cr Clr Drug Dosing 105.8 ml/min 10/03/23 17:15 Est GFR ( Amer) 110.8 ml/min 10/03/23 17:15 Est GFR (Non-Af Amer) 95.6 ml/min 10/03/23 17:15 BUN/Creatinine Ratio 11.6 (10-20) 10/03/23 17:15 Glucose 117 mg/dl (70-99(Fasting)) H 10/03/23 17:15 Calcium 9.8 mg/dl (8.6-10.3) 10/03/23 17:15 Total Bilirubin 0.7 mg/dl (0.2-1.0) 10/03/23 17:15 AST 18 U/L (13-39) 10/03/23 17:15 ALT 31 U/L (7-52) 10/03/23 17:15 Alkaline Phosphatase 18 U/L (34-104) L 10/03/23 17:15 Troponin I High Sens < 2.3 pg/ml (0-20) 10/03/23 17:15 Total Protein 7.5 gm/dl (6.0-8.3) 10/03/23 17:15 Albumin 4.4 gm/dl (3.4-5.0) 10/03/23 17:15 Globulin 3.1 gm/dl (2.5-4.0) 10/03/23 17:15 Albumin/Globulin Ratio 1.4 (0.9-2) 10/03/23 17:15 Lipase 59 U/L (11-82) 10/03/23 17:15 Impressions Chest X-Ray 10/03/23 17:08 XR chest 1V portable CLINICAL HISTORY: Chest pain, nonspecific COMPARISON STUDY: Chest radiograph April 15, 2009. FINDINGS: Lung volumes are normal. Lungs are clear. There is no pneumothorax or pleural effusion. Cardiac size is normal. Mediastinal contours are normal. There is no evidence for pulmonary edema. IMPRESSION: No acute cardiopulmonary findings. ACT 112: Negative or not required by law. Electronically signed by: Shubham Arellano M.D. 10/03/2023 5:44 PM ECG Additional Comments: ECG. Sinus tachycardia rate of 102. ST depression in anterior lateral leads Code Status & VTE Plan VTE Prophylaxis Plan VTE Prophylaxis will be ordered: Yes
[2023-10-03] MEDS: ACETAMINOPHEN 325 MG TAB PO PRN (22:06)
[2023-10-03] MEDS: NITROGLYCERIN 2% OINTMENT 30GM TUBE EXT SCH (22:07)
[2023-10-04] MEDS: NITROGLYCERIN 2% OINTMENT 30GM TUBE EXT SCH ×2 (03:29→08:35)
[2023-10-04 04:25] LABS: Basophils # (auto) 0.07 K/uL (0.00-0.20); Basophils % (auto) 0.9 %; Eosinophils # (auto) 0.15 K/uL (0.00-0.50); Hemoglobin 14.5 g/dl (14.0-18.0); Immature Granulocytes # (auto) 0.03 K/uL (0.01-0.20); Immature Granulocytes % (auto) 0.4 %; Lymphocytes # (auto) 1.87 K/uL (1.20-3.40); Lymphocytes % (auto) 24.9 %; Mean Corpuscular Hemoglobin 28.1 pg (25.0-34.0); Mean Corpuscular Hgb Conc 33.7 g/dL (32.0-36.0); Mean Corpuscular Volume 83.3 fL (80.0-100.0); Monocytes # (auto) 0.52 K/uL (0.11-0.59); Monocytes % (auto) 6.9 %; Neutrophils # (auto) 4.87 K/uL (1.40-6.50); Neutrophils % (auto) 64.9 %; Platelet Count 256 K/uL (130-400); RDW Coefficient of Variation 12.8 % (11.5-14.5); RDW Standard Deviation 38.8 fL (36.4-46.3); Red Blood Count 5.16 M/uL (4.70-6.10); White Blood Count 7.51 K/ul (4.8-10.8)
[2023-10-04 04:43] LABS: BUN Creatinine Ratio 12.5 (10-20); Calcium 9.1 mg/dl (8.6-10.3); Chol HDL Ratio 3.3 (0-5); Creatinine Clr Calc Pharmacy 125.7 ml/min; Est GFR (African American) 124.2 ml/min; Est GFR (Non-African American) 107.1 ml/min; Magnesium 1.9 mg/dl (1.7-2.4); Potassium 3.7 mmol/L (3.5-5.1)
[2023-10-04 04:49] LABS: Troponin I High Sensitivity 2.9 pg/ml (0-20)
[2023-10-04] MEDS: ACETAMINOPHEN 325 MG TAB PO PRN (05:46)
[2023-10-04] MEDS ORDERED: CETIRIZINE HCL 10 MG TABLET PO SCH (09:00)
[2023-10-04] MEDS ORDERED: ROSUVASTATIN CALCIUM 5 MG TAB PO SCH (09:00)
--- NOTE | 2023-10-04 09:06 | Cardiology Consultation ---
Date of Consultation October 04, 2023 Assessment & Plan (1) Chest pain at rest: (2) HTN (hypertension): (3) HLD (hyperlipidemia): (4) Fam hx-ischem heart disease: (5) History of tobacco abuse: Plan 48-year-old male with multiple cardiac risk factors seen in consultation for resting chest discomfort reproducible with palpation as well as certain movements of the left upper extremity suggesting musculoskeletal etiology. EKG with diffuse ST segment depression of unknown chronicity. High-sensitivity troponin negative x 3. Resting echocardiography with preserved LV systolic function, without wall motion abnormality or significant valvular disease. Recommend discontinuation of Nitropaste given resultant headache, initiation of losartan for additional blood pressure control noting mild hypokalemia on presentation, and future referral for stress testing given the abnormal EKG as well as multiple risk factors. Supervising Physician Co-Signing Physician Notes 48-year-old male presents to the emergency department with left-sided chest and shoulder discomfort. Currently pain-free. ECG with diffuse ST depression although no old ECG for comparison. No orthopnea, PND, or lower extremity e ben. Denies palpitations, lightheadedness, or dizziness. Blood pressure initially elevated however improved throughout the day. PE: VSS. Gen: NAD, AAO x3. Heart: Regular rhythm, normal S1-S2. No murmur. Lungs: Clear bilateral, no rales, rhonchi, wheeze. Extremities: No edema. A/P: Agree with above AP history, physical exam, assessment and plan. 48-year-old male presents with atypical chest discomfort and abnormal ECG. Normal high-sensitivity troponin. Echocardiogram without evidence of left ventricular hypertrophy or regional wall motion abnormality. Recommend further evaluation with exercise stress echocardiography. Patient declined inpatient stress testing at this time. Will arrange for outpatient exercise stress echo. Instructed patient to monitor home blood pressure 2 days/week and restrict sodium intake. Further recommendations regarding addition of antihypertensive therapy pending review of stress test result. Thank you for allow me to participate in the care of your patient. History of Present Illness Reason for Consultation: Chest pain Requesting Physician: Dr. Woods Attending Physician: Dr. Moctezuma History of Present Illness Mr. Migue Welch is a very pleasant 48-year-old male who is being seen today at the request of Dr. Woods. Reason for consultation is chest pain. Patient awoke around 1 AM with left scapular pain and left upper anterior lateral chest pain described as an ache. The discomfort persisted throughout the night and into the next morning. Later in the morning the patient checked his blood pressure and observed a SBP via wrist cuff of 210. He then contacted an EMS friend and went in for an EKG and was advised to report to the ER for further evaluation and treatment. Initial blood pressure was 153/90. EKG in the ER revealed sinus tachycardia at 102 bpm with diffuse STT wave abnormalities suggestive of ischemia. High-sensitivity troponin: <2.3 -> 3.3 -> 2.9 pg/mL. Chest x-ray showed no acute cardiopulmonary findings. Resting echocardiography revealed normal LV systolic function, EF 55 to 60%, with normal LV wall motion and no significant valvular pathology. Nitropaste prescribed on admission with resultant headache. Patient denies prior cardiac history. Notes undergoing stress testing in 2008 for symptoms that ultimately proved to be gastric reflux. Patient notes being very active up into the COVID pandemic. 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 No history of CAD, UT, CHF, arrhythmia, heart murmur, rheumatic fever, or scarlet fever. Past Medical and Surgical History: COVFL August 2023 Dyslipidemia Untreated obstructive sleep apnea History of tobacco abuse (quit in 2001) Generalized anxiety disorder Depression Migraine headaches Difficult intubation GERD Childhood asthma (has not needed an inhaler x 15 years) Seasonal allergies Plantar fasciitis Dental surgery Inguinal hernia repair Umbilical hernia repair Tonsillectomy at age 40 Family History: Mother with atrial fibrillation. Father alive without cardiac issues, history of hypertension. Sister had congenital heart disease, passing in 1993 from complications from heart and lung transplant. Maternal grandmother with breast cancer. Maternal grandfather with pancreatic cancer. Paternal grandmother with a CVA. Paternal grandfather with lung cancer. Social History: Reformed smoker having quit in 2001. Alcohol: 2-4 beers per day. No illegal drug use. . 2 children age 14 and 17. 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 Allergies Allergy/AdvReac Type Severity Reaction Status Date / Time omeprazole Allergy Unknown diarrhea Verified 05/14/23 15:51 Home Medications Medication Instructions Recorded Confirmed Type cetirizine 10 mg tablet 10 mg PO DAILY 10/03/23 10/03/23 History rosuvastatin 5 mg tablet 5 mg PO DAILY 10/03/23 10/03/23 History losartan 25 mg tablet 25 mg PO DAILY #30 tabs 10/04/23 Rx Patient History Medical History No pertinent family history HLD (hyperlipidemia) Surgical History No pertinent past surgical history Social History Smoking Status: Former smoker Do You Dip or Chew Tobacco: No; Hx Alcohol Use: Yes Alcohol type: beer Hx Substance Use: No Preferred Language: Kiswahili Communication Ability: Effective Trimming Operator Required: No Beliefs That Will Affect Care: None Current Living Situation: Spouse and Family Other Information That Helps Us Care for You: No Feels Safe at Home: Yes Safety Concerns: Feels Safe At This Time Assistive Devices: Contacts and Glasses Review of Systems Review of Systems: Complete Review of Systems: Constitutional: No change in weight. No fevers, sweats, or chills. HEENT: Glasses. Floaters. No amaurosis fugax. Pulmonary: Childhood asthma. Untreated GEORGE. No history of COPD or emphysema. No history of PE. Cardiac: See above. GI/Abd: GERD. No melana or hematochezia. No liver or kidney problems. Vascular: Denies history of claudication, AAA, or carotid artery disease. Hematologic: No coagulation disorder, anemia, or abnormal bleeding. Musculoskeletal: Heel spur. Skin: Negative. Neurologic: No history of TIA, CVA, or Seizure Endocrine: No DM or thyroid problems. Complete Review of Systems is as stated above, negative, or noncontributory. Physical Exam Physical Exam: General: A&Ox3. NAD. HENT: Normocephalic. Atraumatic. Eyes: PER. Conjunctiva pink, sclera clear. Neck: No carotid bruits. No JVD. No HJR. Heart: RRR, 76 bpm. No murmur. No rub. No gallop. PMI is nondisplaced. Chest: There is mild erythema and tenderness in the left upper anterior chest and over the scapula on the left. There is a very small area of healing ecchymosis in the right upper anterolateral chest area. Lungs: Clear to auscultation. Abdomen: +BS. Soft. Nontender. No masses or organomegaly. Extremities: No clubbing, cyanosis, or edema. Limited neurological examination is without focal deficits. Pulses: radial=2/4, posterior tibial=2/4. Results & Data Vital Signs (Past 12 Hours) Vital Signs Temp Pulse Pulse Resp BP BP Pulse Ox 10/04/23 08:31 85 18 136/78 99 10/04/23 07:29 71 10/04/23 06:16 60 14 114/64 96 10/04/23 03:30 36.7 C 70 16 121/80 97 10/04/23 02:00 76 13 96 10/04/23 02:00 107/66 10/04/23 01:30 77 17 95 10/04/23 01:30 124/80 10/04/23 01:00 75 16 95 10/04/23 01:00 129/69 10/04/23 00:30 85 15 95 10/04/23 00:30 144/80 H 10/04/23 00:00 86 15 97 10/04/23 00:00 144/89 H 10/03/23 23:30 93 H 17 95 10/03/23 23:30 135/75 10/03/23 23:00 83 13 96 10/03/23 23:00 147/94 H 10/03/23 23:00 83 10/03/23 22:30 159/90 H 10/03/23 22:30 96 H 16 95 10/03/23 22:08 101 H 13 96 10/03/23 22:08 169/95 H 10/03/23 22:00 93 H 13 98 10/03/23 22:00 150/96 H 10/03/23 22:00 94 H 16 159/95 H 98 10/03/23 22:00 10/03/23 21:30 108 H 22 99 10/03/23 21:30 154/93 H Pulse Ox O2 Del Method O2 Del Method 10/04/23 08:31 Room Air 10/04/23 07:29 10/04/23 06:16 Room Air 10/04/23 03:30 Room Air 10/04/23 02:00 10/04/23 02:00 10/04/23 01:30 10/04/23 01:30 10/04/23 01:00 10/04/23 01:00 10/04/23 00:30 10/04/23 00:30 10/04/23 00:00 10/04/23 00:00 10/03/23 23:30 10/03/23 23:30 10/03/23 23:00 10/03/23 23:00 10/03/23 23:00 10/03/23 22:30 10/03/23 22:30 10/03/23 22:08 10/03/23 22:08 10/03/23 22:00 10/03/23 22:00 10/03/23 22:00 Room Air 10/03/23 22:00 98 Room Air 10/03/23 21:30 10/03/23 21:30 Laboratory Results Cardiac Enzymes 10/03/23 10/03/23 10/04/23 Range/Units 17:15 21:10 03:40 AST 18 (13-39) U/L Troponin I High Sens < 2.3 3.3 2.9 (0-20) pg/ml Lipids 10/04/23 Range/Units 03:40 Triglycerides 94 (0-150) mg/dl Cholesterol 150 (0-200) mg/dl HDL Cholesterol 45 mg/dl Cholesterol/HDL Ratio 3.3 (0-5) CBC 10/03/23 10/04/23 Range/Units 17:15 03:40 WBC 10.17 7.51 (4.8-10.8) K/ul RBC 5.50 5.16 (4.70-6.10) M/uL Hgb 15.9 14.5 (14.0-18.0) g/dl Hct 44.3 43.0 (42.0-52.0) % Plt Count 281 256 (130-400) K/uL Neut # (Auto) 7.42 H 4.87 (1.40-6.50) K/uL Lymph # (Auto) 1.75 1.87 (1.20-3.40) K/uL [place] # (Auto) 0.73 H 0.52 (0.11-0.59) K/uL Eos # (Auto) 0.12 0.15 (0.00-0.50) K/uL Baso # (Auto) 0.08 0.07 (0.00-0.20) K/uL Comprehensive Metabolic Panel 10/03/23 10/04/23 Range/Units 17:15 03:40 Sodium 138 140 (136-145) mmol/L Potassium 3.2 L 3.7 (3.5-5.1) mmol/L Chloride 101 105 (98-107) mmol/L Carbon Dioxide 27 26 (21-32) mmol/L BUN 11 10 (6-23) mg/dl Creatinine 0.95 0.80 (0.6-1.4) mg/dl Glucose 117 H 118 H (70-99(Fasting)) mg/dl Calcium 9.8 9.1 (8.6-10.3) mg/dl AST 18 (13-39) U/L ALT 31 (7-52) U/L Alkaline Phosphatase 18 L (34-104) U/L Total Protein 7.5 (6.0-8.3) gm/dl Albumin 4.4 (3.4-5.0) gm/dl Intake and Output 10/03/23 10/04/23 10/04/23 22:59 06:59 14:59 Other: Weight 89.9 kg Weight Measurement Method Built in [facility] (2) HTN (hypertension) Hypertension type: primary hypertension Qualified Code(s): I10 - Essential (primary) hypertension (3) HLD (hyperlipidemia) Hyperlipidemia type: unspecified Qualified Code(s): E78.5 - Hyperlipidemia, unspecified
--- NOTE | 2023-10-04 11:57 | Electrocardiogram Report ---
Test Reason : Blood Pressure : / mmHG Vent. Rate : 102 BPM Atrial Rate : 102 BPM P-R Int : 138 ms QRS Dur : 102 ms QT Int : 336 ms P-R-T Axes : 015 033 -29 degrees QTc Int : 437 ms Sinus tachycardia Abnormal ECG When compared with ECG of 15-APR-2009 08:32, Vent. rate has increased BY [address] now depressed in Anterolateral leads T wave inversion now evident in Anterior leads Confirmed by David Perez ([id number]) on 10/04/2023 11:57:00 AM Referred By: REFERRED SELF Confirmed By:Damian Perez
--- NOTE | 2023-10-04 11:59 | Electrocardiogram Report ---
Test Reason : Blood Pressure : / mmHG Vent. Rate : 075 BPM Atrial Rate : 075 BPM P-R Int : 154 ms QRS Dur : 100 ms QT Int : 384 ms P-R-T Axes : 035 037 -45 degrees QTc Int : 428 ms Normal sinus rhythm T wave abnormality, consider anterolateral ischemia Abnormal ECG When compared with ECG of 03-OCT-2023 17:08, (unconfirmed) ST no longer depressed in Lateral leads Inverted T waves have replaced nonspecific T wave abnormality in Lateral leads Confirmed by David Perez ([id number] on 10/04/2023 11:59:41 AM Referred By: REFERRED SELF Confirmed By:Damian Perez
--- NOTE | 2023-10-04 15:39 | Discharge Summary ---
Date of Service October 04, 2023 Admission HPI Per Admitting Provider 48-year-old male with past medical history significant for dyslipidemia,, difficult intubation, mild persistent asthma, obstructive sleep apnea noncompliant with CPAP, plantar fasciitis, migraine, depression, general anxiety disorder, presents with chest pain. Patient states he woke up around 1:30 AM in the morning with left shoulder pain radiating to the scapular region 3/10 in severity aching type. And it was not getting better. He got anxious and his systolic blood pressure shot into 200s. No diaphoresis. No nausea. No headache. No dizziness. Currently pain is minimal. No cough. No fevers. No sore throat. No abdominal pain. Normal bowel and bladder movements. Patient says usually he runs runs. But he had COVID at the end of August since since then he is not running. But he is walking 3 miles a day. Last walked 3 miles and notes no symptoms of chest pain or shortness of breath while walking. But today when he had this pain while climbing steps the pain was little worse. Past medical history. As mentioned above Past surgical history. Dental surgery. EGD with biopsy. Laparoscopic inguinal hernia repair. Tonsillectomy. Umbilical hernia repair Social history. . Quit smoking 2004. Alcohol 4 beers per week. No drug use. Family history. Father has allergies. Hypertension. Obesity. Mother has allergies. Arthritis. Atrial fibrillation. Diabetes. Maternal grandfather had pancreatic cancer. Diabetes. Maternal grandmother had breast cancer. Diabetes. Depression. Paternal grandmother had diabetes. Paternal grandfather had lung cancer. Admission Exam Per Admitting Provider General- Not in distress Head- atraumatic Eyes- PERRL. ENT- oropharynx clear Neck- supple, no JVD. Lungs- clear to auscultation no wheezing or crackles. Heart- regular rhythm; no murmur, no gallop. Abdomen- normal bowel sounds, soft, nontender, no distension. Extremities- no pretibial edema, no erythema seen. Neuro- alert, oriented x 3; PERRL, no facial palsy; no dysarthria; moves extremities Principal Diagnosis Chest pain, ACS ruled out Discharge Exam Constitutional: WD/WN, vitals as above, NAD, sitting up in bed, pleasant, conversing easily Respiratory: normal respiratory effort, lungs clear to auscultation, no wheeze, rales, rhonchi. Normal insp/exp effort, no accessory muscle use Cardiovascular: RRR, no murmur, no edema Vessels: no JVD or carotid bruit Chest: normal inspection of chest Abdomen: normal bowel sounds, soft, nontender, no hepatosplenomegaly Musculoskeletal: no cyanosis or clubbing, extremities motor strength 5/5 Skin: no rashes, warm and dry normal turgor Neurologic: PERRL, EOMI, accommodation nl, no face palsy, no dysarthria CN's II- XI intact bilaterally and moves all extremities Psychiatric: A+Ox3, euthymic affect Discharge Data Allergies Allergy/AdvReac Type Severity Reaction Status Date / Time omeprazole Allergy Unknown diarrhea Verified 05/14/23 15:51 Consultations 10/03/23 19:23 ED Decision to Admit Stat 10/04/23 08:00 Consult Cardiology Routine Hospital Course (1) Chest pain: 48-year-old male with past medical history significant for dyslipidemia,, difficult intubation, mild persistent asthma, obstructive sleep apnea noncompliant with CPAP, plantar fasciitis, migraine, depression, general anxiety disorder, presents with chest pain. On presentation to the ED, patient was hypertensive, afebrile and saturating well on room air. EKG showed sinus tachycardia with ST depression and T wave inversion in anterolateral leads. High sensitive troponin was negative Chest x-ray did not show any acute findings. Cardiology was consulted for comanagement. Echocardiogram showed EF of 55 to 60%, normal LV systolic function and no significant valvular pathology. Patient was recommended by cardiology to undergo exercise stress echocardiography inpatient. Plan is for outpatient exercise stress echo. Discussed with patient regarding blood pressure monitoring at home. He was prescribed losartan 25 mg once a day. Please note the above document was generated using voice recognition software. It may contain grammatical, syntax or spelling errors. Any formal questions or concerns about the content, text or information contained within the body of this dictation should be directly addressed to the provider for clarification Total Time Total Time Spent Total Time Spent (In Minutes): 45 Total Time Includes: Examination of the Patient, Discharge Planning, Medication Reconciliation, Communication With Other Providers and Other Discharge Plan Discharge Items Patient Disposition: Home - Self-Care Reason For Visit: CHEST PAIN Discharge Diagnosis: Chest pain, ACS ruled out. Activity: Resume your previous activity Non-emergency contact: Primary Care Provider Call non-emergency contact if: you have any medication questions and your symptoms worsen Follow-up/Referrals: Ariana Girard MD [Primary Care Provider] - Diet: Regular Addtl Attending Provider Instructions: You were admitted to the hospital due to chest pain. You were evaluated by cardiology during the hospitalization; they recommend outpatient stress test. You will get a call for an appointment. You are prescribed losartan 25 mg once a day for high blood pressure. Please measure blood pressure daily at home. You need to be sitting on a chair with both feet on the ground with ypur arm rested before measuring the blood pressure. An appointment will be set up with your primary care doctor. Pending Studies at Discharge: No Stand-Alone Forms: My [facility] [place], Smoking Cessation Medications and DC Order Prescriptions: New losartan 25 mg tablet 25 mg PO DAILY Qty: 30 0RF Continued cetirizine 10 mg Tablet 10 mg PO DAILY rosuvastatin 5 mg tablet 5 mg PO DAILY Discharge Orders: Discharge Order (Routine); Ordered 10/04/23 Ordered By: Seun Moctezuma Admission Data Admit Date/Time: 10/03/23 20:06 Attending Provider: Seun Moctezuma Admit Provider: Som Woods Primary Care Provider: Ariana Girard Other Providers: Som Woods; Victoria Winchester; Nadir Landa; Melquiades Bernard; Adelso Robles; Asa Marcelino; Gildardo Carreon; Chery Toney; Ailyn Dominguez; Victoria Leon; Shashi Redd; Jonathan Mendez; Mary Hooker; Lovely Dimas; Dannie Rutledge; Bronson Jackson Other Interventions: Discharge Summary Assessment (RN) Last Done: 10/04/23 14:54
--- NOTE | 2023-10-04 16:03 | Electrocardiogram Report ---
Test Reason : Blood Pressure : / mmHG Vent. Rate : 075 BPM Atrial Rate : 075 BPM P-R Int : 152 ms QRS Dur : 100 ms QT Int : 382 ms P-R-T Axes : 023 024 -29 degrees QTc Int : 426 ms Normal sinus rhythm T wave abnormality, consider anterolateral ischemia Abnormal ECG When compared with ECG of 04-OCT-2023 05:50, No significant change was found Confirmed by David Perez ([id number]) on 10/04/2023 4:03:11 PM Referred By: REFERRED SELF Confirmed By:Damian Perez
== END 2023-10-04 14:58 | disposition home or self-care (01) ==
LOC: ED 17:04 → EDINP 17:04